=== PATIENT | male | born 1995 | race Two or more races ===

== ENCOUNTER 2024-07-25 19:01 | Emergency (ER) | payer OTHER ==
[~2024-07-25] VITALS: Ht 172.7 cm; Wt 72.7 kg
[2024-07-25 19:22] VITALS: TEMP 98
[2024-07-25] MEDS ORDERED: ACET-66 PO (23:18)
[2024-07-25] MEDS ORDERED: IBUP-1554 PO (23:18)
[2024-07-25 23:27] VITALS: BP 130/84; PULSE 75; RESP 16; O2SAT 98
[2024-07-25] MEDS: ACETAMINOPHEN 500 MG TABLET PO ONE (23:44)
[2024-07-25] MEDS: IBUPROFEN 600 MG TABLET PO ONE (23:44)
== END 2024-07-26 00:27 | disposition home or self-care (01) ==
LOC: EMS 19:01
DX: S93.401A Sprain of unspecified ligament of right ankle, initial encounter (principal); W17.89XA Other fall from one level to another, initial encounter; Y93.39 Activity, other involving climbing, rappelling and jumping off; Y92.89 Other specified places as the place of occurrence of the external cause; Y99.0 Civilian activity done for income or pay
CPT/HCPCS: 99283